=== PATIENT | female | born 1985 | race Caucasian/White ===

== ENCOUNTER 2017-12-11 08:56 | Inpatient (IN) ==
--- NOTE | 2017-12-11 09:29 | ED ---
History of Present Illness Primary Care Physician: No Primary Care Physician History of Present Illness: 32 year-old , IUP at 39.3 care uncomplicated per patient report except resolved low lying placenta The patient presents complaining of the onset of painful contractions at 5 am that increased in intensity and frequency and were regular, occurring every 3 minutes. She reports there were no aggravating or alleviating factors and no attempted treatments. She reports the contractions have become slightly less intense since arriving. She reports she was seen 2 days ago and was 2 cm dilated. She denies any leaking of fluid or vaginal bleeding. She reports good movement. She reports bloody mucus, but denies any vaginal bleeding. She has no other obstetrical complaints today. 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 PSH: denies FH: denies SH: denies Meds/allergies: as per EMR Weeks Gestation:: 39 Para: 1 : 2 Review of Systems All other systems reviewed negative except as stated in HPI PMFSH - Travel History Recent Travel in the [facility] Within the Last 8 Weeks: No Recent Travel Out of the Country Within the Last 8 Weeks: No Medications and Allergies Allergies Allergy/AdvReac Type Severity Reaction Status Date / Time No Known Allergies Allergy Verified 12/11/17 09:14 Home Medications Medication Instructions Recorded Confirmed Type vit-iron fum-folic ac 1 tab PO DAILY 12/11/17 12/11/17 History [ Vitamin] Exam Vital signs: Vital Signs 12/11/17 09:15 Temperature 98.0 F Pulse Rate 87 Respiratory Rate 18 Blood Pressure 120/83 Intake & Output 12/10/17 12/11/17 12/11/17 18:59 06:59 18:59 Weight 71 kg Narrative: GENERAL: Well-nourished, well-developed patient. SKIN: Warm and dry. No rashes, lesions, or masses noted HEAD: Normocephalic and atraumatic. EYES: No scleral icterus. No injection or drainage. ENT: No nasal drainage noted. Mucous membranes pink. Airway patent. NECK: Supple, trachea midline. No JVD. CARDIOVASCULAR: Regular rate and rhythm without murmurs, gallops, or rubs. RESPIRATORY: Breath sounds equal bilaterally. No accessory muscle use. BREASTS: Bilateral exam showed no masses , no retractions, no nipple discharge. ABDOMEN/GI: Abdomen soft, non-tender, bowel sounds present, no rebound, no guarding Gravid GENITOURINARY: normal EGBUS, no cervical or vaginal masses noted, bloody mucus noted, grossly normal rugae, SVE 4/70/-1, cephalic, BBOW FHT's: FHTs are in the 150s with moderate senior care variability, good accels, and no decels noted. This is a reactive NST and category 1 heart rate tracing. EXTREMITIES: No cyanosis or edema. BACK: Nontender without obvious deformity. NEUROLOGICAL/PSYCHIATRIC: Awake and alert. Motor and sensory grossly within normal limits. Grossly normal muscle strength in all muscle groups. Normal speech. Normal memory/affect. CN 2-12 grossly intact. Grossly normal range of motion, gait. Assessment and Plan - Plan A/P: 1. IUP at 39.3 2. Early labor: patient has made cervical change since prior visit and has regular contractions with a BBOW and bloody show. Discussed with Dr. Dupont, will admit patient to Dr. Dupont. Discussed in brief risks of , risks/ indications of delivery. All of the patient's questions were answered and orders placed for admission to Dr. Dupont. 3. wellbeing: reassuring testing with reactive NST and category 1 heart rate tracing, continue monitoring 4. GBS negative 5. Resolved low lying placenta Discharge Plan - Discharge Disposition Patient Disposition: 30 Still Patient - Physicians Team ED Provider: Marina Alvarado Primary Care Provider: Primary Care Мария Leyva
[2017-12-11] MEDS ORDERED: Sod Chloride 0.9% Inj 1,000 ML IV.CONT PRN (09:31)
[2017-12-11] MEDS ORDERED: Oxytocin 30 Units/500ml Premix 30 UNITS/500 ML BAG IV.SIG ONE (09:31)
[2017-12-11] MEDS ORDERED: Sodium Chlor 0.9% Inj 500 ML IV.SIG PRN (09:31)
[2017-12-11] MEDS ORDERED: Naloxone Inj 0.4 MG/ML Vial IV.PUSH PRN ×2 (09:31→17:03)
[2017-12-11] MEDS ORDERED: fentaNYL Citrate Inj 100 MCG/2 ML Ampul IV.PUSH PRN ×2 (09:31)
[2017-12-11] MEDS ORDERED: Citric Acid/Sodium Citrate Liq 30 ML UDC PO SCH (09:45)
[2017-12-11 10:40] LABS: Bacteria,Urine Rare /hpf; Baso % (Auto) 0.3 % (0.0-2.0); Bilirubin,Urine Negative (Negative); Clarity,Urine Hazy (Clear); Color,Urine Yellow (Yellw/Straw); Eos # (Auto) 0.1 th/mm3 (0.0-0.4); Eos % (Auto) 0.7 % (0.0-4.0); Glucose,Urine (UA) Negative (Negative); Hematocrit 38.1 % (35.0-46.0); Hemoglobin 13.1 gm/dL (11.6-15.3); Leukocyte Esterase,Urine Negative (Negative); Lymph # (Auto) 1.9 th/mm3 (1.0-4.8); Lymph % (Auto) 14.2 % (9.0-44.0); Mean Corpuscular HGB Conc 34.5 % (32.0-36.0); Mean Corpuscular Hemoglobin 30.2 pg (27.0-34.0); Mean Corpuscular Volume 87.8 fL (80.0-100.0); Mean Platelet Volume 9.9 fL (7.0-11.0); Mono # (Auto) 0.8 th/mm3 (0.0-0.9); Mono % (Auto) 5.8 % (0.0-8.0); Neut # (Auto) 10.7 th/mm3 (1.8-7.7); Nitrite,Urine Negative (Negative); Platelet Count 172 th/mm3 (150-450); Red Blood Count 4.34 mil/mm3 (4.00-5.30); Red Cell Distribution Width 13.9 % (11.6-17.2); Specific Gravity,Urine 1.008 (1.002-1.035); Squamous Epithelial Cell,Urine 6 /hpf (0-5); White Blood Count 13.5 th/mm3 (4.0-11.0)
[2017-12-11 10:47] LABS: Amphetamine Urine With Conf Neg (Neg); Benzodiazepine Urine With Conf Neg (Neg)
[2017-12-11] MEDS ORDERED: Citric Acid/Sodium Citrate Liq 30 ML UDC PO ONE (11:00)
[2017-12-11] MEDS ORDERED: fentaNYL 2MCG-Bupiv 0.125% Epi 150 ML EPIDURAL ONE (12:54)
[2017-12-11] MEDS ORDERED: fentaNYL 2MCG-Bupiv 0.125% Epi 150 ML EPIDURAL PRN (14:00)
[2017-12-11] MEDS ORDERED: fentaNYL Citrate Inj 100 MCG/2 ML Ampul EPIDURAL ONE (14:00)
[2017-12-11] MEDS ORDERED: Diphtheria/Tetanus/Pertussis Vaccine Inj 0.5 ML Syringe IM ONE (16:00)
[2017-12-11] MEDS ORDERED: Measles/Mumps/Rubella Vaccine Inj 0.5 ML Vial SQ ONE (16:00)
[2017-12-11] MEDS ORDERED: Witch Hazel 50%/Glyderin 12.5% 40 Pad Jar RECTAL PRN (17:03)
[2017-12-11] MEDS ORDERED: Bisacodyl 10 MG Supp RECTAL PRN (17:03)
[2017-12-11] MEDS ORDERED: Benzocaine 20% Top Spray 60 ML Can TOPICAL PRN (17:03)
[2017-12-11] MEDS ORDERED: Oxytocin 30 Units/500ml Premix 30 UNITS/500 ML BAG IV.CONT PRN (17:03)
--- NOTE | 2017-12-11 17:03 | P.OBDELI ---
Weeks Gestation: 39 Patient Started Active Labor: Yes Medical Induction of Labor: No Artificial Rupture of Membrane: Yes Anesthesia: Epidural Episiotomy: none Vaginal Delivery: Normal Presentation: Occiput anterior Nuchal Cord: None Delayed Cord Clamping (45 sec): Yes Placenta: Spontaneous delivery, Intact, 3 vessel cord Laceration: None Estimated blood loss (mL): 200 Infant: Male Infant Male A score (1 min): 8 score (5 min): 9
[2017-12-11] MEDS: Senna/Docusate Sodium 8.6/50 MG Tablet PO SCH (20:22)
[2017-12-11] MEDS ORDERED: Zolpidem Tartrate 5 MG Tablet PO PRN (21:00)
[2017-12-12] MEDS: Acetaminophen 325 MG Tablet PO PRN (02:33)
[2017-12-12 08:42] VITALS: O2SAT 97
--- NOTE | 2017-12-12 09:14 | P.PNOB ---
Subjective Post day: 1 Interval history: Nursing well no issues no repair or sutures Objective Vital Signs/I&O: Vital Signs 12/11/17 09:15 12/11/17 09:43 12/11/17 11:50 Temperature 98.0 F Pulse Rate 87 79 81 Respiratory Rate 18 Blood Pressure 120/83 123/81 105/75 Pulse Oximetry 12/11/17 12:00 12/11/17 13:00 12/11/17 13:05 Temperature Pulse Rate 81 108 H Respiratory Rate 16 18 Blood Pressure 115/76 96/57 L Pulse Oximetry 12/11/17 13:40 12/11/17 13:55 12/11/17 14:00 Temperature Pulse Rate 81 83 87 Respiratory Rate 18 Blood Pressure 84/68 L 125/78 118/77 Pulse Oximetry 12/11/17 14:05 12/11/17 14:10 12/11/17 14:21 Temperature Pulse Rate 80 80 80 Respiratory Rate Blood Pressure 109/88 120/73 123/78 Pulse Oximetry 12/11/17 14:27 12/11/17 15:00 12/11/17 15:15 Temperature 97.8 F Pulse Rate 90 82 Respiratory Rate 18 18 Blood Pressure 115/79 124/76 Pulse Oximetry 12/11/17 15:30 12/11/17 15:45 12/11/17 16:00 Temperature Pulse Rate 112 H 102 H Respiratory Rate 18 18 Blood Pressure 116/76 117/76 Pulse Oximetry 12/11/17 17:15 12/11/17 17:18 12/11/17 17:57 Temperature Pulse Rate 106 H 110 H Respiratory Rate 18 16 Blood Pressure 120/71 128/65 Pulse Oximetry 12/11/17 18:00 12/11/17 18:15 12/11/17 20:00 Temperature 98.6 F 98.4 F Pulse Rate 101 H 98 H Respiratory Rate 18 8 L Blood Pressure 123/68 117/73 Pulse Oximetry 12/12/17 08:40 Temperature 98.1 F Pulse Rate 82 Respiratory Rate 20 Blood Pressure 106/69 Pulse Oximetry 97 Intake & Output 12/11/17 12/12/17 12/12/17 18:59 06:59 18:59 Weight 71 kg Other: Weight On Admission 71 kg Result Diagrams: 12/11/17 09:45 Objective Remarks: GENERAL: Well-nourished, well-developed patient. CARDIOVASCULAR: Regular rate and rhythm without murmurs, gallops, or rubs. RESPIRATORY: Breath sounds equal bilaterally. No accessory muscle use. ABDOMEN/GI: Abdomen soft, non-tender. Fundus: Firm, non-tender at umbilicus. GENITOURINARY: Light to moderate bleeding. EXTREMITIES: No cyanosis or edema, non-tender, without signs of DVT. 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[facility] Stop: 12/15/17 09:44 Ephedrine Sulfate (Ephedrine/Ns Syringe) 10 mg IV.PUSH UNSCH PRN PRN Reason: SEE LABEL COMMENTS Stop: 12/12/17 13:45 Last Admin: 12/11/17 14:21 Dose: 10 mg Fentanyl Citrate (Fentanyl Inj) 50 mcg IV.PUSH Q1H PRN PRN Reason: Pain Scale 3 - 5 Fentanyl Citrate (Fentanyl Inj) 100 mcg IV.PUSH Q1H PRN PRN Reason: PAIN SCALE 6 TO 10 Lactated Ringer's (Lr 1000 Ml Inj) 1,000 mls @ 125 mls/hr IV.CONT .Q8H [facility] Last Admin: 12/11/17 09:45 Dose: 125 mls/hr Lactated Ringer's (Lr 1000 Ml Inj) 1,000 mls @ 3,000 mls/hr IV.SIG UNSCH PRN PRN Reason: compromise or epidural Last Admin: 12/11/17 13:01 Dose: 3,000 mls/hr Sodium Chloride (Ns Inj) 500 mls @ 1,000 mls/hr IV.SIG UNSCH PRN PRN Reason: SEE LABEL COMMENTS Sodium Chloride (Ns Inj) 1,000 mls @ 100 mls/hr IV.CONT .Q10H PRN PRN Reason: SEE LABEL COMMENTS Fentanyl/Bupivacaine/Sodium Chlor (Fentanyl 2 Mcg-Bupiv 0.125% Epi) 150 mls @ 10 mls/hr EPIDURAL PRN PRN PRN Reason: for Labor Pain Oxytocin (Pitocin 30 Units/Ns 500 Ml Premix) 30 units in 500 mls @ 100 mls/hr IV.CONT UNSCH PRN PRN Reason: Heavy bleeding Ibuprofen (Motrin) 800 mg PO Q8H PRN PRN Reason: For Cramping Last Admin: 12/11/17 20:22 Dose: 800 mg Lactulose (Lactulose Liq) 30 ml PO DAILY PRN PRN Reason: SEVERE CONSITIPATION Lidocaine HCl (Xylocaine 1% Inj) 0.1 ml I-DERMAL PRN PRN PRN Reason: For IV start Stop: 12/14/17 09:30 Lidocaine HCl (Xylocaine 1% Inj) 10 ml INFILTRATN PRN PRN PRN Reason: For episiotomy repair Stop: 12/13/17 09:30 Mineral Oil (Muri-Lube Oil) 10 ml TOPICAL PRN PRN PRN Reason: PRN perineal massage Miscellaneous Information (Misc Information) 1 each OTHER UNSCH PRN PRN Reason: SEE LABEL COMMENTS Stop: 12/12/17 13:45 Miscellaneous Information (Misc Information) 1 each OTHER UNSCH PRN PRN Reason: SEE LABEL COMMENTS Stop: 12/12/17 13:45 Naloxone HCl (Narcan Inj) 0.1 mg IV.PUSH Q2M PRN PRN Reason: for opiate reversal Ondansetron HCl (Zofran Odt) 4 mg PO Q6H PRN PRN Reason: NAUSEA OR VOMITING Vit/Calcium/Iron/Folic Ac (Stuartnatal Plus 3) 1 tab PO DAILY ELENA Senna/Docusate Sodium (Kayla-Colace) 1 tab PO BID ELENA Last Admin: 12/11/17 20:22 Dose: 1 tab Sennosides (Senokot) 17.2 mg PO Q12H PRN PRN Reason: Moderate Constipation Sodium Chloride (Ns Flush) 2 ml IV.FLUSH BID ELENA Sodium Chloride (Ns Flush) 2 ml IV.FLUSH PRN PRN PRN Reason: FLUSH AFTER USING IV ACCESS Witch Diandra/Glycerin (Tucks Pads) 1 applicatio RECTAL QID PRN PRN Reason: HEMORRHOIDS Zolpidem Tartrate (Ambien) 5 mg PO HS PRN PRN Reason: SLEEP Assessment and Plan - Diagnosis (1) No leakage of amniotic fluid into vagina Code(s): Z03.71 - Encounter for suspected problem with amniotic cavity and membrane ruled out Status: Acute Plan: ready for discharge when son discharge RTO 6 weeks
[2017-12-12] MEDS: Prenatal Vit/Ca/Iron/Folic Acid Tablet PO SCH (09:29)
[2017-12-12] MEDS: Senna/Docusate Sodium 8.6/50 MG Tablet PO SCH ×2 (09:29→20:01)
[2017-12-13 07:38] VITALS: BP 107/74; PULSE 76; RESP 20; TEMP 98
--- NOTE | 2017-12-13 08:12 | P.PNOB ---
Subjective Post day: 2 Interval history: doing well, ready for d/c home today Objective Vital Signs/I&O: Vital Signs 12/12/17 08:40 12/12/17 20:00 12/13/17 07:37 Temperature 98.1 F 98.3 F 98.0 F Pulse Rate 82 74 76 Respiratory Rate 20 17 20 Blood Pressure 106/69 121/77 107/74 Pulse Oximetry 97 Result Diagrams: 12/11/17 09:45 Objective Remarks: GENERAL: Well-nourished, well-developed patient. CARDIOVASCULAR: Regular rate and rhythm without murmurs, gallops, or rubs. RESPIRATORY: Breath sounds equal bilaterally. No accessory muscle use. ABDOMEN/GI: Abdomen soft, non-tender. Fundus: Firm, non-tender at umbilicus. GENITOURINARY: Light to moderate bleeding. EXTREMITIES: No cyanosis or edema, non-tender, without signs of DVT. 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 [facility] Stop: 12/15/17 09:44 Fentanyl Citrate (Fentanyl Inj) 50 mcg IV.PUSH Q1H PRN PRN Reason: Pain Scale 3 - 5 Fentanyl Citrate (Fentanyl Inj) 100 mcg IV.PUSH Q1H PRN PRN Reason: PAIN SCALE 6 TO 10 Lactated Ringer's (Lr 1000 Ml Inj) 1,000 mls @ 125 mls/hr IV.CONT .Q8H [facility] Last Admin: 12/11/17 09:45 Dose: 125 mls/hr Lactated Ringer's (Lr 1000 Ml Inj) 1,000 mls @ 3,000 mls/hr IV.SIG UNSCH PRN PRN Reason: compromise or epidural Last Admin: 12/11/17 13:01 Dose: 3,000 mls/hr Sodium Chloride (Ns Inj) 500 mls @ 1,000 mls/hr IV.SIG UNSCH PRN PRN Reason: SEE LABEL COMMENTS Sodium Chloride (Ns Inj) 1,000 mls @ 100 mls/hr IV.CONT .Q10H PRN PRN Reason: SEE LABEL COMMENTS Fentanyl/Bupivacaine/Sodium Chlor (Fentanyl 2 Mcg-Bupiv 0.125% Epi) 150 mls @ 10 mls/hr EPIDURAL PRN PRN PRN Reason: for Labor Pain Oxytocin (Pitocin 30 Units/Ns 500 Ml Premix) 30 units in 500 mls @ 100 mls/hr IV.CONT UNSCH PRN PRN Reason: Heavy bleeding Ibuprofen (Motrin) 800 mg PO Q8H PRN PRN Reason: For Cramping Last Admin: 12/12/17 22:06 Dose: 800 mg Lactulose (Lactulose Liq) 30 ml PO DAILY PRN PRN Reason: SEVERE CONSITIPATION Lidocaine HCl (Xylocaine 1% Inj) 0.1 ml I-DERMAL PRN PRN PRN Reason: For IV start Stop: 12/14/17 09:30 Lidocaine HCl (Xylocaine 1% Inj) 10 ml INFILTRATN PRN PRN PRN Reason: For episiotomy repair Stop: 12/13/17 09:30 Mineral Oil (Muri-Lube Oil) 10 ml TOPICAL PRN PRN PRN Reason: PRN perineal massage Naloxone HCl (Narcan Inj) 0.1 mg IV.PUSH Q2M PRN PRN Reason: for opiate reversal Ondansetron HCl (Zofran Odt) 4 mg PO Q6H PRN PRN Reason: NAUSEA OR VOMITING Vit/Calcium/Iron/Folic Ac (Stuartnatal Plus 3) 1 tab PO DAILY [facility] Last Admin: 12/12/17 09:29 Dose: 1 tab Senna/Docusate Sodium (Kayla-Colace) 1 tab PO BID ELENA Last Admin: 12/12/17 20:01 Dose: 1 tab Sennosides (Senokot) 17.2 mg PO Q12H PRN PRN Reason: Moderate Constipation Sodium Chloride (Ns Flush) 2 ml IV.FLUSH BID ELENA Sodium Chloride (Ns Flush) 2 ml IV.FLUSH PRN PRN PRN Reason: FLUSH AFTER USING IV ACCESS Witch Diandra/Glycerin (Tucks Pads) 1 applicatio RECTAL QID PRN PRN Reason: HEMORRHOIDS Zolpidem Tartrate (Ambien) 5 mg PO HS PRN PRN Reason: SLEEP Assessment and Plan - Diagnosis (1) No leakage of amniotic fluid into vagina Code(s): Z03.71 - Encounter for suspected problem with amniotic cavity and membrane ruled out Status: Acute Plan: ready for discharge when son discharge RTO 6 weeks (2) Vaginal delivery Code(s): O80 - Encounter for full-term uncomplicated delivery Status: Acute - Plan PPD #2 doing well d/c home today routine PP care Discharge Planning: routine - Attending Attestation pt seen by me
[2017-12-13] MEDS: Senna/Docusate Sodium 8.6/50 MG Tablet PO SCH (09:41)
[2017-12-13] MEDS: Acetaminophen 325 MG Tablet PO PRN (09:42)
[2017-12-13] MEDS: Prenatal Vit/Ca/Iron/Folic Acid Tablet PO SCH (09:42)
== END 2017-12-13 11:24 | disposition home or self-care (01) ==
LOC: HOBED 08:56 → H2E 09:35 → H1EA 18:39
PROVIDERS: ADMIT Obstetrics & Gynecology; ATTEND Obstetrics & Gynecology